=== PATIENT | female | born 1960 | race Two or more races ===

== ENCOUNTER 2020-01-12 16:19 | Emergency (ER) | payer MEDICAID ==
[~2020-01-12] VITALS: Ht 160 cm; Wt 73.5 kg
[2020-01-12] MEDS ORDERED: Omnipaque-300 100ml vial INJ PRN (16:30)
[2020-01-12 16:37] VITALS: BP 117/57
[2020-01-12 16:44] LABS: BASOPHILS % (AUTO) 0.7 % (0.0-2.0); EOSINOPHILS % (AUTO) 2.8 % (0.0-3.0); HEMATOCRIT 38.1 % (37.0-47.0); HEMOGLOBIN 12.6 G/DL (12.0-16.0); LYMPHOCYTES % (AUTO) 32.1 % (20.0-45.0); MEAN CORPUSCULAR VOLUME 88 FL (80-99); MONOCYTES % (AUTO) 6.5 % (1.0-10.0); NEUTROPHILS % (AUTO) 57.9 % (45.0-75.0); PLATELET COUNT 310 K/UL (150-450); RED BLOOD COUNT 4.35 M/UL (4.20-5.40); WHITE BLOOD COUNT 12.2 K/UL (4.8-10.8)
[2020-01-12 16:48] LABS: APPEARANCE,URINE SLIGHTLY CLOUDY; BILIRUBIN, URINE NEGATIVE (NEGATIVE); COLOR,URINE YELLOW; GLUCOSE, URINE (UA) NEGATIVE (NEGATIVE); KETONES,URINE NEGATIVE (NEGATIVE); PROTEIN,URINE 1+ (NEGATIVE)
[2020-01-12 16:49] LABS: LEUKOCYTE ESTERASE ,URINE 1+ (NEGATIVE); NITRITE,URINE NEGATIVE (NEGATIVE); UROBILINOGEN,URINE NORMAL MG/DL (0.0-1.0)
[2020-01-12 16:55] LABS: INR 0.9 (0.9-1.1)
[2020-01-12 16:57] LABS: ANION GAP 9 mmol/L (5-15); BLOOD UREA NITROGEN 18 mg/dL (7-18); CALCIUM 8.8 MG/DL (8.5-10.1); CARBON DIOXIDE 29 MMOL/L (21-32); CHLORIDE 102 MMOL/L (98-107); CREATININE 0.9 MG/DL (0.55-1.30); POTASSIUM 3.9 MMOL/L (3.5-5.1); SODIUM 140 MMOL/L (136-145)
[2020-01-12 17:02] LABS: ALANINE AMINOTRANSFERASE 16 U/L (12-78); ALBUMIN 3.3 G/DL (3.4-5.0); ALBUMIN/GLOBULIN RATIO 0.7 (1.0-2.7); ALKALINE PHOSPHATASE 109 U/L (46-116); ASPARTATE AMINO TRANSFERASE 12 U/L (15-37); BILIRUBIN,TOTAL 0.1 MG/DL (0.2-1.0)
[2020-01-12] MEDS ORDERED: cefTRIAXone 1 GM in NS 55 ML IVPB ONE (17:15)
[2020-01-12 18:35] VITALS: BP 122/60
--- NOTE | 2020-01-12 19:27 | Emergency Room Report ---
History of Present Illness General Chief Complaint: General Complaint Source: Patient Present Illness HPI 60-year-old female who is currently on G-tube and it was removed by herself earlier today at home brought in by paramedics due to abdominal pain post removal of G-tube at home. Patient reports that she removed the G-tube herself. Patient complains of minimal pain after G-tube removal. Denies any nausea vomiting diarrhea. No pus drainage noted at the G-tube site. No bleeding noted. Patient denies taking any oral pills. Patient does not want to take an oral medication. Denies any urinary symptoms and diffuse abdominal pain. Patient is nontender to palpation. Denies chest pain, short of breath, headache and dizziness. Patient is not on any blood thinners. Allergies: Coded Allergies: No Known Allergies (Unverified , 01/12/20) COVID-19 Screening Contact w/high risk pt: No Experienced COVID-19 symptoms?: No COVID-19 Testing performed [employer]PER[employer]OR: No Patient History Past Medical History: see triage record Past Surgical History: none Pertinent Family History: none Now: No Immunizations: UTD Reviewed Nursing Documentation: PMH: Agreed; PSxH: Agreed Nursing Documentation-PMH Past Medical History: No History, Except For Review of Systems All Other Systems: negative except mentioned in HPI Physical Exam Vital Signs Date Time Temp Pulse Resp B/P (MAP) Pulse Ox O2 Delivery O2 Flow Rate FiO2 01/12/20 16:13 98.2 88 19 117/57 (77) 93 Room Air Sp02 EP Interpretation: reviewed, normal General Appearance: no apparent distress, alert, GCS 15, non-toxic Head: normocephalic, atraumatic Eyes: bilateral eye normal inspection, bilateral eye PERRL ENT: hearing grossly normal, normal pharynx, no angioedema, normal voice Neck: full range of motion, supple/symm/no masses Respiratory: chest non-tender, lungs clear, normal breath sounds, speaking full sentences Cardiovascular #1: regular rate, rhythm, no edema Gastrointestinal: normal bowel sounds, non tender, soft, non-distended, no guarding, no rebound, other - No pus drainage noted at the site of G-tube removal no bleeding noted Rectal: deferred Genitourinary: no CVA tenderness Musculoskeletal: back normal, no calf tenderness Neurologic: alert, motor strength/tone normal, oriented x3, sensory intact, responsive, speech normal Psychiatric: judgement/insight normal, memory normal, mood/affect normal, no suicidal/homicidal ideation Skin: no rash Lymphatic: no adenopathy Medical Decision Making PA Attestation ALL Diagnosis and treatment plan reviewed and discussed with my supervising physician Dr. Cobb Diagnostic Impression: Primary Impression: Abdominal pain Additional Impression: UTI (urinary tract infection) ER Course 60-year-old female who is currently on G-tube and it was removed by herself earlier today at home brought in by paramedics due to abdominal pain post removal of G-tube at home. Patient reports that she removed the G-tube herself. Patient complains of minimal pain after G-tube removal. Denies any nausea vomiting diarrhea. No pus drainage noted at the G-tube site. No bleeding noted. Patient denies taking any oral pills. Patient does not want to take an oral medication. Denies any urinary symptoms and diffuse abdominal pain. Patient is nontender to palpation. Denies chest pain, short of breath, headache and dizziness. Patient is not on any blood thinners. Ddx considered but are not limited to: Abdominal abscess, adhesions, appendicitis, cholecystitis, Vital signs: are WNL, pt. is afebrile H&PE are most consistent with: Abdominal pain, UTI ORDERS: abdominal CT, abdominal pain set, EKG, ED INTERVENTIONS: Rocephin to treat UTI as patient cannot take any oral medication. DISCHARGE: At this time pt. is stable for d/c to home. Will provide printed patient care instructions, and any necessary prescriptions. Care plan and follow up instructions have been discussed with the patient prior to discharge. Patient to follow primary doctor and cinder pitman patient has an in- home nurse was going to come in most likely inserting a new G-tube if needed. Patient will follow-up with primary doctor tomorrow. Advised return to the emergency room if worsening symptoms. EKG Diagnostic Results Rate: normal Rhythm: NSR ST Segments: no acute changes Other Impression No acute ST changes Chest X-Ray Diagnostic Results Chest X-Ray Diagnostic Results : Chest X-Ray Ordered: Yes # of Views/Limited/Complete: 1 View Indication: Other EP Interpretation: Yes PA Xray: Interpretation reviewed, by supervising MD, and agrees with findings. Interpretation: no consolidation, no effusion, no pneumothorax Impression: No acute disease Electronically Signed by: Anastasiia Sue PA-C CT/MRI/US Diagnostic Results CT/MRI/US Diagnostic Results : Imaging Test Ordered: CT abdomen pelvis with contrast Impression FINDINGS: At the midportion of the percutaneous gastrostomy tube subcutaneous soft tissue site there is a 9 mm low-density area for example sagittal 46 which may represent fluid in the tract or phlegmon. Mild surrounding soft tissue stranding. No soft tissue gas.. No intra-abdominal abscess or free air. Abdominal solid organs, gallbladder and abdominal aorta appear within limits. No bowel dilation or free air. Normal caliber appendix without secondary signs. Diverticulosis without diverticulitis. Bladder appears within limits. No free fluid. The ovaries and uterus appear within limits. IMPRESSION: At the midportion of the percutaneous gastrostomy tube subcutaneous soft tissue site there is a 9 mm low-density area for example sagittal 46 which may represent fluid in the tract or phlegmon. Mild surrounding soft tissue stranding. No soft tissue gas.. No intra-abdominal abscess or free air. Last Vital Signs Date Time Temp Pulse Resp B/P (MAP) Pulse Ox O2 Delivery O2 Flow Rate FiO2 01/12/20 18:35 98.7 76 16 122/60 97 Room Air Disposition: HOME, SELF-CARE Condition: Stable Referrals: NON PHYSICIAN (PCP) Patient Instructions: Abdominal Pain, Adult, [id number], Urinary Tract Infection, [id number] Additional Instructions: Take medication as directed, follow-up with your primary care provider and cinder pitman, if worsening symptoms return to the emergency Anastasiia Coronel Jan 12, 2020 19:27
[2020-01-12 19:46] VITALS: BP 135/65
== END 2020-01-12 19:46 | disposition home or self-care (01) ==
LOC: EDBD 16:19 → EMR 16:35
DX: R10.9 Unspecified abdominal pain (principal); N39.0 Urinary tract infection, site not specified
CPT/HCPCS: 36415; 71045; 71260; 74177; 80053; 81003; 83690; 84484; 85025; 85610; 85730; 86850; 86900; 86901; 87086; 93005; 96361; 96365; J0696; J7030; Q9967; Z7502; 99284